=== PATIENT | female | born 1940 | race Caucasian/White ===

== ENCOUNTER 2021-05-30 12:19 | Inpatient (IN) | payer MEDICARE ==
[~2021-05-30] VITALS: Ht 167.6 cm; Wt 63.5 kg
[2021-05-30] MEDS ORDERED: IV NORMAL SALINE 500 ML BAG IV ONE (12:45)
[2021-05-30] MEDS ORDERED: MORPHINE SULFATE 2 MG/1 ML DISP.SYRIN IV ONE (12:45)
[2021-05-30] MEDS ORDERED: ONDANSETRON 4 MG/2 ML VIAL IV ONE ×2 (12:45→13:30)
[2021-05-30] MEDS ORDERED: MORPHINE SULFATE 4 MG/1 ML DISP.SYRIN ONE ×2 (12:46→13:06)
[2021-05-30] MEDS ORDERED: ONDANSETRON 4 MG/2 ML VIAL ONE ×3 (12:46→14:09)
--- NOTE | 2021-05-30 12:48 | NUR ---
I HAVE ASKED PATIENT FOR A LIST OF HER MEDICATIONS AND SHE HAS NOT GIVEN IT TO ME, I ASKED TWICE.
--- NOTE | 2021-05-30 12:49 | NUR ---
PT IS IN ROOM #2B. DR OHARA EVALUATED THE PT.
[2021-05-30 12:55] LABS: HEMATOCRIT 39.6 % (31.2-41.9); MEAN CORPUSCULAR HEMOGLOBIN 31.1 uug (24.7-32.8); MEAN CORPUSCULAR VOLUME 90.4 fL (75.5-95.3); PLATELET COUNT (AUTO) 198 K/uL (179-408)
[2021-05-30 13:11] LABS: BILIRUBIN,DIRECT 0.1 mg/dL (0.0-0.2); BILIRUBIN,TOTAL 0.4 mg/dL (0.2-1.0); CREATININE 0.8 mg/dL (0.6-1.3); TOTAL PROTEIN, SERUM 6.9 g/dL (6.4-8.2)
[2021-05-30] MEDS ORDERED: HYDROMORPHONE 1 MG/1 ML DISP.SYRIN ONE ×2 (13:27→14:07)
[2021-05-30] MEDS ORDERED: HYDROMORPHONE 1 MG/1 ML DISP.SYRIN IV ONE ×2 (13:30→14:00)
[2021-05-30] MEDS ORDERED: IV NORMAL SALINE 500 ML IV ONE (14:00)
--- NOTE | 2021-05-30 14:09 | NUR ---
DR HIGUERA WAS CALLED ([phone]) ACCORDING TO DR OHARA ORDER. DR OHARA AND DR HIGUERA DISCUSSED PT'S TREATMENT PLAN.
[2021-05-30] MEDS ORDERED: SWABABLE VALVE TRANSFER SET EA MC ONE (14:25)
[2021-05-30] MEDS ORDERED: IOHEXOL 350 100 ML INFUS..BTL ONE (14:25)
[2021-05-30] MEDS ORDERED: IV NORMAL SALINE 250 ML IV ONE (14:25)
--- NOTE | 2021-05-30 16:34 | NUR ---
REPORT WAS GIVEN TO RN M/S. PT WAS TRANSFERED TO ROOM #315.
[2021-05-30 16:58] VITALS: BP 166/97
--- NOTE | 2021-05-30 17:00 | NUR ---
Patient received via wheelchair to the floor. Patient is complaining of abdominal pain 10/10 and nausea. Emesis bag provided and informed MD Dr. Saini of patient's arrival. Patient is alert and oriented x4, but poor historian and tends to trail off while speaking. Right AC IV is patent with no redness or swelling noted at this time. Patient informed of NPO status and she expresses understanding. On RA with no SOB or difficulties breathing. NSR on monitor at this time. Call light within easy reach. Will continue to monitor.
--- NOTE | 2021-05-30 17:15 | NUR ---
New orders for 1mg Dilaudid Q3H PRN pain, 4mg Zofran Q4H PRN nausea, and IVF at this time. Administered as ordered. Will continue to monitor patient.
[2021-05-30] MEDS ORDERED: HYDROMORPHONE 1 MG/1 ML DISP.SYRIN IV PRN ×2 (17:30→18:45)
[2021-05-30] MEDS: ONDANSETRON 4 MG/2 ML VIAL IV PRN ×2 (17:45→22:11)
[2021-05-30] MEDS: IV D5 1/2 NS 1000 ML 1,000 ML IV PRN (17:51)
[2021-05-30] MEDS ORDERED: ACETAMINOPHEN 650 MG SUPP.RECT RC PRN (18:00)
[2021-05-30] MEDS ORDERED: ESCI20TA PO (18:08)
[2021-05-30] MEDS ORDERED: ASPI81TA31 PO (18:08)
[2021-05-30] MEDS ORDERED: STATIN (18:08)
[2021-05-30] MEDS ORDERED: METO-356 PO (18:08)
[2021-05-30] MEDS ORDERED: LEVO25TA9 PO (18:08)
--- NOTE | 2021-05-30 18:45 | NUR ---
Patient states that the pain medication was only effective for a little bit and her pain is back. She is moaning, yelling, and crying. MD notified with new orders for increased dose of dilaudid to 2mg with first dose due now. Also, increasing IVF to 110 mL/h. Administered as ordered. Will continue to monitor.
[2021-05-30] MEDS: HYDROMORPHONE 2 MG/1 ML DISP.SYRIN IV PRN ×2 (18:50→22:11)
--- NOTE | 2021-05-30 19:30 | NUR ---
Patient is resting comfortably with eyes closed in bed. IVF running as ordered. Will endorse to oncoming shift.
--- NOTE | 2021-05-30 20:13 | NUR ---
Received patient in bed awake alert and able to make needs know.On Ra.Denies SOb.Iv on right AC 18g patent and intact with IVF running well. Tolerated well.Patient NPO and made aware. Notified stated he might come tonight or tomorrow morning with new order received noted and carried out. Patient able to ambulates with the use of walker with assist.Call light with in reach.Will continue to monitor.
[2021-05-30 20:34] VITALS: BP 144/85
[2021-05-30] MEDS: PIPERACILLIN SODIUM/TAZOBACTAM 3.375 G in IV DEXTROSE 5% 50 ML IV SCH (21:22)
[2021-05-30 23:22] LABS: *BILIRUBIN,URIN NEGATIVE (NEGATIVE); *BLOOD, URINE 1+ (NEGATIVE); *COLOR,URINE YELLOW (YELLOW); *KETONES,URINE TRACE (NEGATIVE); *UROBILINOGEN,URINE 0.2 E.U./dl (NORMAL); LEUKOCYTE ESTERASE ,URINE NEGATIVE (NEGATIVE); NITRITE, URINE NEGATIVE (NEGATIVE); PH,URINE 5.5 (5.0-8.0); UGLUCOSE NEGATIVE (NEGATIVE)
[2021-05-30 23:25] LABS: *CLARITY,URINE HAZY (CLEAR)
[2021-05-30 23:29] LABS: BACTERIA,URINE FEW /HPF (NONE SEEN); SQUAMOUS EPITHELIAL CELL,UR MODERATE /HPF (NONE SEEN)
--- NOTE | 2021-05-31 00:23 | NUR ---
Patient awake still c/o nausea .Vomited with mild greenish liquid.Per patient she's been throwing up a lot today. notified with new order received noted and carried out.Will continue to monitor. Addendum: 06/01/21 at 0157 by MAKENNA JESUS RN Error date entry
[2021-05-31 00:53] VITALS: BP 98/61
[2021-05-31] MEDS: HYDROMORPHONE 2 MG/1 ML DISP.SYRIN IV PRN ×6 (02:15→23:27)
[2021-05-31] MEDS: ONDANSETRON 4 MG/2 ML VIAL IV PRN ×5 (02:15→19:56)
[2021-05-31 04:30] VITALS: BP 92/56
[2021-05-31] MEDS: PIPERACILLIN SODIUM/TAZOBACTAM 3.375 G in IV DEXTROSE 5% 50 ML IV SCH (05:30)
[2021-05-31 05:41] LABS: HEMATOCRIT 42.1 % (31.2-41.9); MEAN CORPUSCULAR HEMOGLOBIN 31.6 uug (24.7-32.8); MEAN CORPUSCULAR VOLUME 92.4 fL (75.5-95.3); PLATELET COUNT (AUTO) 206 K/uL (179-408)
[2021-05-31 06:04] LABS: BILIRUBIN,TOTAL 0.3 mg/dL (0.2-1.0); CREATININE 1.2 mg/dL (0.6-1.3); PHOSPHOROUS 4.2 mg/dL (2.5-4.9); POTASSIUM 4.4 mmol/L (3.5-5.1); TOTAL PROTEIN, SERUM 5.8 g/dL (6.4-8.2)
[2021-05-31 06:28] LABS: THYROID STIMULATING HORMONE 0.714 mIU/mL (0.358-3.740)
[2021-05-31] MEDS: IV D5 1/2 NS 1000 ML 1,000 ML IV PRN (06:39)
--- NOTE | 2021-05-31 08:00 | NUR ---
PT CAME IN WITH C/O N/V, PT A/OX4, ON TELE MONITOR NSR, ON RA NO SIGNS OF DISTRESS, NO REPORTS OF PAIN, PT NPO PENDING XR UPPER GI WITH SBO FOLLOW THROUGH. PT HAS IV ON THE RIGHT AC 18G, INFUSING D5 1/2NS AT 110. BED LOW AND LOCKED, CALL LIGHT WITHIN REACH, WILL CONTINUE TO MONITOR.
[2021-05-31] MEDS: PANTOPRAZOLE SODIUM 40 MG VIAL IV SCH (08:53)
[2021-05-31 12:00] VITALS: BP 93/47
[2021-05-31] MEDS ORDERED: DIATR MEGLU/DIATRIZOATE SODIUM 30 ML BOTTLE ONE (14:38)
[2021-05-31] MEDS: PIPERACILLIN SODIUM/TAZOBACTAM 3.375 G in IV DEXTROSE 5% 100 ML IV SCH ×2 (14:46→21:19)
[2021-05-31 16:33] VITALS: BP 99/54
[2021-05-31] MEDS ORDERED: ATOR20TA PO (17:50)
[2021-05-31] MEDS ORDERED: LEVO137T2 PO (17:53)
[2021-05-31] MEDS ORDERED: METO25TA6 PO (18:00)
[2021-05-31] MEDS ORDERED: BUSP15TA3 PO (18:03)
[2021-05-31 20:18] VITALS: BP 133/67
--- NOTE | 2021-05-31 20:26 | NUR ---
Received patient in bed. Screaming and moaning in pain with c/o feeling nauseous.Dilaudid IVP and Zofran IVP given on right AC 18g .Tolerated well.IVF infusing well. HOB elevated. Denies SOB .On RA.Will continue to monitor. Call light with in reach.
[2021-06-01] MEDS ORDERED: METOCLOPRAMIDE HCL 10 MG/2 ML VIAL IV ONE (00:15)
--- NOTE | 2021-06-01 01:23 | NUR ---
Patient awake still c/o nausea .Vomited with mild greenish liquid.Per patient she's been throwing up a lot today. notified with new order received noted and carried out.Will continue to monitor.
[2021-06-01] MEDS: HYDROMORPHONE 2 MG/1 ML DISP.SYRIN IV PRN ×5 (03:03→21:41)
[2021-06-01] MEDS: IV D5 1/2 NS 1000 ML 1,000 ML IV PRN ×2 (03:09→21:35)
[2021-06-01 04:15] VITALS: BP 124/64
[2021-06-01] MEDS: PIPERACILLIN SODIUM/TAZOBACTAM 3.375 G in IV DEXTROSE 5% 100 ML IV SCH ×3 (05:06→21:44)
[2021-06-01 06:24] LABS: HEMATOCRIT 39.4 % (31.2-41.9); MEAN CORPUSCULAR HEMOGLOBIN 31.2 uug (24.7-32.8); MEAN CORPUSCULAR VOLUME 91.6 fL (75.5-95.3); PLATELET COUNT (AUTO) 214 K/uL (179-408)
[2021-06-01 06:41] LABS: CREATININE 1.2 mg/dL (0.6-1.3); MAGNESIUM 2.3 mg/dL (1.8-2.4); PHOSPHOROUS 3.9 mg/dL (2.5-4.9); POTASSIUM 3.8 mmol/L (3.5-5.1)
--- NOTE | 2021-06-01 07:02 | NUR ---
Patient started screaming and moaning c/o abd'l pain.Diluadid given IVP as ordered.Assisted patient to bathroom.Urinated well.VSS
--- NOTE | 2021-06-01 08:00 | NUR ---
PT IN BED RESTING, NPO, PT A/OX4, OT ON ROOM AIR, NO SIGNS OF DISTRESS, NO REPORTS OF PAIN AT THIS TIME. IV ON THE RIGHT AC 18G INFUSING D5 1/2NS AT 110. XR OF SMALL BOWEL WITH FOLLOW THROUGH COMPLETED THIS MORNING, PENDING RESULTS. CALL LIGHT WITHIN REACH, BED LOW AND LOCKED, WILL CONTINUE TO MONITOR.
--- NOTE | 2021-06-01 08:00 | NUR ---
PT IN BED RESTING, C/O PAIN 07/12 MEDICATION GIVEN ORDERED, PT STATED SHE HAD NAUSEA, MEDS GIVEN ORDERED. PT A/OX4, ON ROOM AIR, NO SIGNS OF DISTRESS NOTED,, IV ON THE RIGHT FA INFUSING NS AT 70CC/HR. BED IN LOW AND LOCKED POSITION, CALL LIGHT WITHIN REACH, WILL CONTINUE TO MONITOR. Addendum: 06/01/21 at 1148 by BRITNEY MENEZES RN WRONG PT
[2021-06-01] MEDS: PANTOPRAZOLE SODIUM 40 MG VIAL IV SCH (09:03)
[2021-06-01] MEDS: ONDANSETRON 4 MG/2 ML VIAL IV PRN ×2 (09:20→21:43)
--- NOTE | 2021-06-01 11:00 | NUR ---
PER PHARMACY: VANCO TROUGH TO BE DRAWN AT 2200 TODAY, IF LEVEL IS OVER 20 THEN HOLD THE 2300 VANCO DOSE. WILL ENDORSE TO ONCOMING MAURY PATTEN. Addendum: 06/01/21 at 1147 by BRITNEY MENEZES RN WRONG PT
[2021-06-01 12:00] VITALS: BP 103/58
--- NOTE | 2021-06-01 13:20 | NUR ---
Per MD, pt needs to remain NPO due to obstruction as verified by x-ray.
[2021-06-01 16:41] VITALS: BP 106/70
[2021-06-01 20:50] VITALS: BP 132/82
[2021-06-02] MEDS: HYDROMORPHONE 2 MG/1 ML DISP.SYRIN IV PRN ×5 (00:56→21:23)
[2021-06-02] MEDS: ONDANSETRON 4 MG/2 ML VIAL IV PRN ×2 (02:10→05:44)
[2021-06-02 04:37] VITALS: BP 129/75
[2021-06-02] MEDS: PIPERACILLIN SODIUM/TAZOBACTAM 3.375 G in IV DEXTROSE 5% 100 ML IV SCH ×3 (05:23→21:14)
[2021-06-02 06:04] LABS: HEMATOCRIT 36.8 % (31.2-41.9); MEAN CORPUSCULAR HEMOGLOBIN 31.4 uug (24.7-32.8); MEAN CORPUSCULAR VOLUME 91.4 fL (75.5-95.3); PLATELET COUNT (AUTO) 192 K/uL (179-408)
[2021-06-02] MEDS ORDERED: BACITRACIN ZINC OINT 15 GM TUBE ONE (06:40)
[2021-06-02] MEDS ORDERED: BUPIVACAINE 0.25% 30 ML VIAL ONE (06:41)
[2021-06-02] MEDS ORDERED: LIDOCAINE 1%-EPI 1:100,000 20 ML VIAL ONE (06:41)
[2021-06-02 07:12] LABS: CREATININE 0.9 mg/dL (0.6-1.3); MAGNESIUM 2.3 mg/dL (1.8-2.4); PHOSPHOROUS 2.5 mg/dL (2.5-4.9)
[2021-06-02] MEDS ORDERED: PROPOFOL 200 MG/20 ML BOTTLE ONE (07:39)
[2021-06-02] MEDS ORDERED: SUCCINYLCHOLINE CHLORIDE 200 MG/10 ML VIAL ONE (07:39)
[2021-06-02] MEDS ORDERED: FENTANYL CITRATE 100 MCG/2 ML AMPUL ONE ×2 (07:39→09:55)
[2021-06-02] MEDS ORDERED: ROCURONIUM BROMIDE 50 MG/5 ML VIAL ONE (07:39)
[2021-06-02] MEDS ORDERED: PHYTONADIONE 10 MG/1 ML AMPUL ONE (08:37)
[2021-06-02] MEDS ORDERED: ONDANSETRON 4 MG/2 ML VIAL IV ONE (09:36)
[2021-06-02] MEDS ORDERED: GLYCOPYRROLATE 0.2 MG/ML VIAL IJ ONE (09:36)
[2021-06-02] MEDS ORDERED: DEXAMETHASONE SOD PHOSPHATE 4 MG INJ IV ONE (09:36)
[2021-06-02] MEDS ORDERED: LIDOCAINE-MPF 2% 5 ML VIAL IJ ONE (09:36)
[2021-06-02] MEDS ORDERED: NEOSTIGMINE METHYLSULFATE 10 MG/10 ML VIAL IM ONE (09:36)
[2021-06-02] MEDS ORDERED: CEFAZOLIN 1 G VIAL IM ONE (09:36)
[2021-06-02] MEDS ORDERED: PHENYLEPHRINE 10 MG/1 ML VIAL IV ONE (09:36)
[2021-06-02] MEDS ORDERED: KETOROLAC TROMETHAMINE 30 MG INJ IM ONE (09:36)
--- NOTE | 2021-06-02 10:50 | NUR ---
Received patient from surgery post exploratory laparotomy. Patient awake, AOx4. ON 3L O2 via NC. Vital signs WNL. With Karimi Catheter, draining clear,yellow urine. Will continue to monitor.
[2021-06-02] MEDS: PANTOPRAZOLE SODIUM 40 MG VIAL IV SCH (10:58)
[2021-06-02 11:57] VITALS: BP 121/60
[2021-06-02] MEDS: IV LACTATED RINGERS SOLUTION 1,000 ML IV PRN (12:14)
[2021-06-02 16:00] VITALS: BP 122/65
--- NOTE | 2021-06-02 18:38 | NUR ---
Patient resting in bed. AOx3-4. On 2L O2 via NC. No signs of acute distress. With Karimi Catheter draining yellow, clear urine. Patient compliant with medications and care. Patient complained of pain. Dilaudid IV PRN given as ordered. Patient stated relief of pain. Safety measures provided. Needs anticipated and met. Will endorse to incoming shift for continuity of care.
[2021-06-02 20:00] VITALS: BP 101/65
--- NOTE | 2021-06-02 21:00 | NUR ---
RECEIVED PATIENT IN BED AWAKE ALERT AND ORIENTED ON O2 AT 3L/M BY NASAL CANULA WITH NO S/S OF RESPIRATORY DISTRESS AT THIS TIME HOB UP ABDOMINAL INCISION WITH DRESSINGS DRY AND INTACT WITH NO S/S OF DRAINAGE AT THIS TIME OWUSU CATH TO GRAVITY DRAINAGE OF YELLOW URINE WITH NO HEMATURIA DVT PUMP IS IN USE CALL LIGHTS AND HER PERSONAL BELONGINGS ARE WITHIN EASY REACH AT THIS TIME PATIENT REMAINS NOTHING BY MOUTH ORDERED EXCEPT ICE CHIPSMADE COMFORTABLE WILL CONTINUE TO OBSERVE.
[2021-06-02] MEDS: IBUPROFEN 800 MG TABLET PO SCH (21:14)
[2021-06-02] MEDS: GABAPENTIN 300 MG CAPSULE PO SCH (21:14)
[2021-06-02] MEDS: ACETAMINOPHEN 325 MG TABLET PO SCH (21:15)
--- NOTE | 2021-06-02 22:00 | NUR ---
PATIENT REPOSITIONED IN BED ENCOURAGED TO ATTEMPT TO SIT UP ON THE CHAIR ORDERED BUT REFUSED AND STATED NOT NOW UNWILLING AT THIS TIME
--- NOTE | 2021-06-03 02:43 | NUR ---
REMAIN ON IV ANTIBIOTICS ORDERED WITH NO ADVERSE OR ALLERGIC REACTIONS AT THIS TIME.ASSISTED WITH REPOSITIONING Q2H INCENTIVE SPIROMETER INSTRUCTED AND ENCOURAGED WILL CONTINUE TO OBSERVE.
[2021-06-03] MEDS: IV LACTATED RINGERS SOLUTION 1,000 ML IV PRN ×2 (03:30→21:00)
[2021-06-03 04:00] VITALS: BP 120/69
[2021-06-03] MEDS: GABAPENTIN 300 MG CAPSULE PO SCH ×3 (05:51→21:16)
[2021-06-03] MEDS: IBUPROFEN 800 MG TABLET PO SCH ×3 (05:51→21:16)
[2021-06-03] MEDS: ACETAMINOPHEN 325 MG TABLET PO SCH ×3 (05:51→21:16)
[2021-06-03] MEDS: PIPERACILLIN SODIUM/TAZOBACTAM 3.375 G in IV DEXTROSE 5% 100 ML IV SCH ×4 (05:55→23:01)
--- NOTE | 2021-06-03 06:00 | NUR ---
JELLO CHICKEN BROTH AND JUICE GIVEN TO PATIENT AND AFTER SHE ATE SOME WAS THEN GIVEN HER DUE ORAL MEDICATIONS STATED HER PAIN IS TOLERABLE AT THIS TIME WILL LET ME KNOW IF AND WHEN SHE NEEDS DILAUDID FOR PAIN.POST OP EDUCATION IN PROGRESS ABDOMEN WITH DRESSING INTACT AT THIS TIME
[2021-06-03 06:04] LABS: HEMATOCRIT 29.2 % (31.2-41.9); MEAN CORPUSCULAR HEMOGLOBIN 31.7 uug (24.7-32.8); MEAN CORPUSCULAR VOLUME 90.6 fL (75.5-95.3); PLATELET COUNT (AUTO) 151 K/uL (179-408)
[2021-06-03 07:22] LABS: CREATININE 0.9 mg/dL (0.6-1.3); PHOSPHOROUS 2.2 mg/dL (2.5-4.9); POTASSIUM 3.7 mmol/L (3.5-5.1)
[2021-06-03] MEDS: PANTOPRAZOLE SODIUM 40 MG VIAL IV SCH (08:53)
[2021-06-03 11:45] VITALS: BP 113/64
--- NOTE | 2021-06-03 14:30 | NUR ---
Removed patient trejo catheter. Will continue to monitor patient urine output.
[2021-06-03] MEDS ORDERED: NEUTRA PHOS PACKET PO ONE (16:15)
[2021-06-03 16:37] VITALS: BP 113/61
--- NOTE | 2021-06-03 18:39 | NUR ---
Patient resting in bed. AOx4. On 2L O2 via NC. No signs of acute distress. Patient denies pain/ discomfort at this time. Compliant with medications and care. Patient able to ambulate with walker. Patient denies SOB/ during ambulation. Safety measures provided. Needs anticipated and met. Will endorse to incoming shift for continuity of care.
--- NOTE | 2021-06-03 19:30 | NUR ---
RECEIVED PT AWAKE, ALERT AND ORIENTEDX4. PT IN NO ACUTE DISTRESS. IV INTACT. PT ON 2L NASAL CANNULA. SAFETY AND COMFORT PROVIDED. WILL CONTINUE TO MONITOR.
[2021-06-03 21:24] VITALS: BP 118/66
[2021-06-03] MEDS: ONDANSETRON 4 MG/2 ML VIAL IV PRN (23:23)
--- NOTE | 2021-06-03 23:40 | NUR ---
At 2323h Zofran prn given for Pt dizziness. Pt tolerated it well. Will continue to monitor.
[2021-06-04 04:20] VITALS: BP 123/73
[2021-06-04] MEDS: PIPERACILLIN SODIUM/TAZOBACTAM 3.375 G in IV DEXTROSE 5% 100 ML IV SCH ×3 (05:21→21:16)
[2021-06-04] MEDS: IBUPROFEN 800 MG TABLET PO SCH ×3 (05:23→21:13)
[2021-06-04] MEDS: ACETAMINOPHEN 325 MG TABLET PO SCH ×3 (05:23→21:13)
[2021-06-04] MEDS: GABAPENTIN 300 MG CAPSULE PO SCH ×3 (05:23→21:13)
[2021-06-04 06:18] LABS: HEMATOCRIT 31.6 % (31.2-41.9); MEAN CORPUSCULAR HEMOGLOBIN 31.6 uug (24.7-32.8); MEAN CORPUSCULAR VOLUME 91.5 fL (75.5-95.3); PLATELET COUNT (AUTO) 164 K/uL (179-408)
--- NOTE | 2021-06-04 06:26 | NUR ---
PT IN NO ACUTE DISTRESS. PRESCRIBED MEDICATION GIVEN AND PT TOLERATED IT WELL. SAFETY AND COMFORT PROVIDED. WILL ENDORSE TO INCOMING NURSE FOR CONTINUITY OF CARE.
[2021-06-04 06:34] LABS: CREATININE 0.9 mg/dL (0.6-1.3); PHOSPHOROUS 3.1 mg/dL (2.5-4.9); POTASSIUM 3.5 mmol/L (3.5-5.1)
--- NOTE | 2021-06-04 07:30 | NUR ---
Patient received in bed, alert and oriented x4. No c/o pain or discomforts at this time. On RA with no SOB or difficulties breathing noted. No acute distress noted at this time. Left FA IV intact running IVF as ordered with no redness or swelling noted. Patient states she has yet to pass gas or have a BM. Personal belongings and call light within easy reach. Will continue to monitor.
[2021-06-04] MEDS: PANTOPRAZOLE SODIUM 40 MG VIAL IV SCH (08:10)
[2021-06-04 08:21] VITALS: BP 97/60
--- NOTE | 2021-06-04 10:21 | NUR ---
Assisted patient walking in hallway with FWW. Gait is steady and tolerance is good.
--- NOTE | 2021-06-04 11:00 | NUR ---
Patient's son at bedside.
[2021-06-04 11:23] VITALS: BP 118/79
[2021-06-04 15:18] VITALS: BP 114/59
--- NOTE | 2021-06-04 15:45 | NUR ---
Assisted patient with walking in hallway with FWW. Tolerance is good. Gait is steady. Will continue to monitor.
--- NOTE | 2021-06-04 16:34 | NUR ---
Spoke with Dr. Shelley and he states patient needs to pass flatus or have a BM. Wants to delay discharge until at least tomorrow to see if she will pass flatus/have a BM. He also spoke to patient directly because patient was requesting medication to help with BM. Dr. Shelley educated and explained to patient why he wants to wait until post-op day 3 before giving her anything and patient expressed understanding. Dr. Arceo notified and she also spoke to Dr. Shelley. Discharge cancelled for today.
[2021-06-04 20:00] VITALS: BP 128/69
--- NOTE | 2021-06-04 21:09 | NUR ---
RECEIVE PT AWAKE, ALERT AND ORIENTEDX4. PT IN NO ACUTE DISTRESS. IV INTACT. SAFETY AND COMFORT PROVIDED. WILL CONTINUE TO MONITOR.
[2021-06-05 04:00] VITALS: BP 135/76
[2021-06-05] MEDS: ACETAMINOPHEN 325 MG TABLET PO SCH ×3 (05:39→21:01)
[2021-06-05] MEDS: IBUPROFEN 800 MG TABLET PO SCH ×3 (05:39→21:01)
[2021-06-05] MEDS: GABAPENTIN 300 MG CAPSULE PO SCH ×3 (05:39→21:01)
--- NOTE | 2021-06-05 05:56 | NUR ---
PT SLEPT INTERMITTENTLY.PT IN NO ACUTE DISTRESS. PRESCRIBED MEDICATION GIVEN AND PT TOLERATED IT WELL. IV INTACT. SAFETY AND COMFORT PROVIDED.ALL NEEDS ARE MET. WILL ENDORSE TO INCOMING NURSE FOR CONTINUITY OF CARE.
--- NOTE | 2021-06-05 07:30 | NUR ---
Patient received in bed, alert and oriented x4. On RA with no SOB or difficulties breathing noted. No acute distress noted at this time. Left FA IV patent with no redness or swelling noted. Patient states she has yet to pass gas or have a BM. Hypoactive bowel sounds in all four quadrants at this time. Personal belongings and call light within easy reach. Will continue to monitor.
[2021-06-05] MEDS: PANTOPRAZOLE SODIUM 40 MG VIAL IV SCH (08:15)
--- NOTE | 2021-06-05 08:40 | NUR ---
Dr. Shelley at bedside and abdominal incisions inspected. Patient has yet to pass flatus and have a BM. As per Dr. Shelley, new orders for fleet enema at this time. If there are no results from the fleet enema after thirty minutes, another fleet enema is to be administered. New orders noted and will administer as ordered.
[2021-06-05] MEDS ORDERED: FLEET ENEMA 133 ML BOTTLE RC ONE ×2 (09:00→11:00)
--- NOTE | 2021-06-05 11:00 | NUR ---
After fleet enema, patient only had a small amount of liquid stool. Second fleet enema ordered as per Dr. Shelley. Will administer as ordered.
[2021-06-05 11:46] VITALS: BP 148/81
--- NOTE | 2021-06-05 12:42 | NUR ---
Patient had a big BM in toilet.
[2021-06-05] MEDS: ONDANSETRON 4 MG/2 ML VIAL IV PRN (12:59)
[2021-06-05 16:04] VITALS: BP 144/86
--- NOTE | 2021-06-05 18:00 | NUR ---
Patient's daughter Pat at bedside. Assisted ambulating in the hallways. Tolerated well with steady gait.
[2021-06-05] MEDS ORDERED: MAG HYDROX/AL HYDROX/SIMETH 30 ML LIQUID UDC PO PRN ×2 (19:00→19:45)
[2021-06-05 20:00] VITALS: BP 120/72
[2021-06-06 04:00] VITALS: BP 153/83
[2021-06-06] MEDS: GABAPENTIN 300 MG CAPSULE PO SCH ×2 (05:56→13:21)
[2021-06-06] MEDS: IBUPROFEN 800 MG TABLET PO SCH ×2 (05:56→13:21)
[2021-06-06] MEDS: ACETAMINOPHEN 325 MG TABLET PO SCH ×2 (05:56→13:21)
--- NOTE | 2021-06-06 06:00 | NUR ---
PATIENT SLEPT WELL THROUGHOUT THE NIGHT. VS WNL. H/L INTACT AND PATENT. PATIENT GIVEN 0600 ROUTINE MEDS. DRESSING INTACT AND PATENT. CALL LIGHT IN REACH. ALL NEEDS ATTENDED. WILL CONTINUE TO MONITOR AND ASSESS.
[2021-06-06 06:17] VITALS: BP 146/75
[2021-06-06 06:51] LABS: HEMATOCRIT 31.7 % (31.2-41.9); MEAN CORPUSCULAR HEMOGLOBIN 31.6 uug (24.7-32.8); MEAN CORPUSCULAR VOLUME 90.3 fL (75.5-95.3); PLATELET COUNT (AUTO) 217 K/uL (179-408)
[2021-06-06 07:25] LABS: CREATININE 0.8 mg/dL (0.6-1.3); PHOSPHOROUS 3.3 mg/dL (2.5-4.9); POTASSIUM 3.5 mmol/L (3.5-5.1)
--- NOTE | 2021-06-06 07:30 | NUR ---
Patient received in bed, alert and oriented x4. On RA with no SOB or difficulties breathing noted. No acute distress noted at this time. Left FA IV patent with no redness or swelling noted. Patient states she is still having very small watery diarrhea after the enema yesterday. Active bowel sounds in all four quadrants at this time. Patient states she is ready for discharge today and will discuss with hospitalist Marielos today. Personal belongings and call light within easy reach. Will continue to monitor.
[2021-06-06] MEDS: PANTOPRAZOLE SODIUM 40 MG VIAL IV SCH (08:36)
[2021-06-06 11:32] VITALS: BP 123/85
[2021-06-06 14:46] VITALS: BP 131/74
--- NOTE | 2021-06-06 16:30 | NUR ---
Patient discharged. Picked up by her daughter, Pat with all her personal belongings. She was also instructed on following up with her primary care provider and Dr. Shelley within one week. All the information was given to her and she expressed understanding. Discharged in satisfactory condition.
[2021-06-07] MEDS ORDERED: PANTOPRAZOLE SODIUM 40 MG TABLET.DR PO SCH (07:00)
== END 2021-06-06 15:30 | disposition home or self-care (01) | DRG 335 ==
LOC: ER 12:21 → MEDSURG3 16:31 → TELE3 17:30 → MEDSURG3 05-31 15:47
PROVIDERS: ADMIT Internal Medicine; ATTEND Student in an Organized Health Care Education/Training Program
PROC: 0DNU0ZZ Release Omentum, Open Approach (ICD-10-PCS; principal; 2021-06-02)
DX: K56.50 Intestinal adhesions [bands], unspecified as to partial versus complete obstruction (principal); I50.33 Acute on chronic diastolic (congestive) heart failure; K66.1 Hemoperitoneum; R18.8 Other ascites; A04.9 Bacterial intestinal infection, unspecified; E03.9 Hypothyroidism, unspecified; E78.5 Hyperlipidemia, unspecified; I11.0 Hypertensive heart disease with heart failure; Z20.822 Contact with and (suspected) exposure to COVID-19; Z79.82 Long term (current) use of aspirin; Z95.2 Presence of prosthetic heart valve
CPT/HCPCS: 36415; 70030-TC; 71045; 74250; 83605; 83690; 83735; 84100; 84443; 85025; 85610; 87086; 93005; 93307; 97161; A4649; C9113; G0378; J0330; J0690; J1100; J1170; J1885; J2270; J2370; J2405; J2543; J2765; J3010; J3430; J3490; J7030; J7050; J7060; J7120; Q9963; Q9967